=== PATIENT | female | born 1965 | race Caucasian/White ===

== ENCOUNTER 2020-08-24 07:20 | Outpatient (CLI) | payer OTHER, SELFPAY ==
--- NOTE | ~2020-08-24 | MM_ITS ---
EXAMINATION: MM screening gordon BI w shane HISTORY: Screening mammogram TECHNIQUE: Craniocaudal and mediolateral oblique 3-D tomosynthesis images were obtained and synthetic 2-D images were generated. CAD analysis was submitted and interpreted. COMPARISON: No prior mammogram is available for comparison at this institution. BREAST PARENCHYMAL COMPOSITION: There are scattered areas of fibroglandular density. FINDINGS: RIGHT BREAST: There is no evidence of suspicious mass, calcification, or architectural distortion to suggest malignancy. LEFT BREAST: Focal asymmetry is present in the posterior third of the upper outer quadrant of the patrick ast. IMPRESSION: 1. Focal asymmetry of the left breast. 2. Additional mammographic views and possible breast ultrasound are recommended. BI-RADS Category 0: Incomplete: Needs additional imaging evaluation. Reviewed, dictated and finalized at location A. IMPRESSION: 1. Focal asymmetry of the left breast. 2. Additional mammographic views and possible breast ultrasound are recommended . BI-RADS Category 0: Incomplete: Needs additional imaging evaluation.
== END 2020-08-24 07:21 | disposition home or self-care (01) ==
PROVIDERS: PCP Emergency Medicine; Visit Provider Emergency Medicine
DX: Z12.31 Encounter for screening mammogram for malignant neoplasm of breast (principal); R92.8 Other abnormal and inconclusive findings on diagnostic imaging of breast
CPT/HCPCS: 77063; 77067

== ENCOUNTER 2020-10-16 09:21 | Outpatient (CLI) | payer OTHER, SELFPAY ==
--- NOTE | ~2020-10-16 | US_ITS ---
US right upper quadrant DATE: 10/16/2020 14:25 INDICATION: Elevated liver enzymes TECHNIQUE: Real-time imaging of liver, pancreas, gallbladder areas COMPARISON: None FINDINGS: Hepatic steatosis. No hepatic or pancreatic space-occupying mass lesion is evident. Normal hepatopedal portal venous flow direction. No gallstones or gallbladder wall thickening or pericholecystic fluid. Negative sonographic Collins's sign. The common bile duct measures up to 7.7-8.7 mm. Normal range is up to 6 mm. Correlation with serum bi lirubin level is recommended. Consider CT abdomen examination and ERCP or MRCP as clinically appropri ate for further evaluation. IMPRESSION: Dilatation of the common bile duct; consider correlation with serum bilirubin and further imaging evaluation as clinically appropriate Reviewed, dictated and finalized at Location A. Reviewed, dictated and finalized at location A.
--- NOTE | ~2020-10-16 | US_ITS ---
EXAMINATION: US pelvic complete EXAM DATE: 10/16/2020 14:26 INDICATION: Irregular vaginal bleeding. TECHNIQUE: Pelvic transabdominal sonogram was performed. There are multiple grayscale and Doppler im ages available for interpretation. There is no prior study for comparison. FINDINGS: Uterus measures 11.7 x 5.9 x 5.4 cm, and is morphologically normal. Endometrial stripe me asures 12 mm, considered thickened for postmenopausal status. Endometrium does appear homogeneously h yperechoic. There is no free pelvic fluid. Right adnexa: The ovary measures 1.8 x 2.0 x 1.1 cm and is morphologically normal. Ovarian vascular f low confirmed. Left adnexa: The ovary measures 2.2 x 1.8 x 1.8 cm and is morphologically normal. Ovarian vascular fl ow confirmed. IMPRESSION: 1. Mild to moderately thickened endometrium for postmenopausal status, differential diagnosis includ ing endometrial cancer, hyperplasia. Histologic correlation may be indicated. Reviewed, dictated and finalized at location A. IMPRESSION: 1. Mild to moderately thickened endometrium for postmenopausal status, differe ntial diagnosis including endometrial cancer, hyperplasia. Histologic correlati on may be indicated.
== END 2020-10-16 09:22 | disposition home or self-care (01) ==
LOC: ANHIMG 09:31
PROVIDERS: PCP Emergency Medicine; Visit Provider Emergency Medicine
DX: N93.9 Abnormal uterine and vaginal bleeding, unspecified (principal); R93.89 Abnormal findings on diagnostic imaging of other specified body structures; R74.8 Abnormal levels of other serum enzymes
CPT/HCPCS: 76705; 76856

== ENCOUNTER 2021-06-11 16:32 | Emergency (ER) | payer OTHER, SELFPAY ==
--- NOTE | 2021-06-11 16:39 | ED.URI ---
HPI - URI/Sore Throat General Chief Complaint: Dental/Oral Stated Complaint: sore throat/ear pain Time Seen by Provider: 06/11/21 16:40 Source: patient and RN notes reviewed Mode of arrival: ambulatory Limitations: no limitations History of Present Illness HPI Narrative: 56-year-old female presents to the [facility] with complaints of dental pain, ear pain and sinus congestion since Sunday, 3 days. Has taken NyQuil. Patient states that she was scheduled for hysterectomy yesterday and 2 to 3 days prior to that had a negative Covid test to [facility] Related Data Home Medications Medication Instructions Recorded Confirmed levothyroxine 50 mcg PO DAILY 06/11/21 06/11/21 Allergies Allergy/AdvReac Type Severity Reaction Status Date / Time No Known Allergies Allergy Unverified 01/26/17 17:21 Review of Systems Review of Systems: All systems reviewed & are unremarkable except as noted in HPI and below Constitutional: Constitutional: Reports no additional constitutional complaints, Denies chills, Denies fever(s) and Denies headache(s) Eyes: Eyes: Reports no additional eye complaints ENT: Reports as per HPI, Denies vertigo, Denies headache(s), Reports nasal congestion and Reports sore throat Comments: Dental pain Cardiovascular: Cardiovascular: Reports no additional cardiovascular complaints, Denies chest pain, Denies syncope, Denies rapid heart rate and Denies dyspnea Respiratory: Respiratory: Reports no additional respiratory complaints, Denies cough, Denies dyspnea and Denies wheezing Gastrointestinal: Gastrointestinal: Reports no additional gastrointestinal complaints, Denies abdominal pain, Denies diarrhea, Denies nausea and Denies vomiting Musculoskeletal: Musculoskeletal: Reports no additional musculoskeletal complaints and Denies numbness Integumentary/Breasts: Skin/Breast: Reports system reviewed and no additional complaints, except as docu Neurologic: Reports system reviewed and no additional complaints, except as documented, Denies vertigo, Denies dizziness, Denies syncope, Denies headache(s), Denies focal weakness and Denies numbness Psychiatric: Psychiatric: Reports no additional psychiatric complaints Allergic/Immunologic: Allergic/Immunologic: Reports no additional allergic/immunologic complaints and Denies wheezing PMFSH Past Medical History Medical History Thyroid disorder Social History Social History (Updated 06/11/21 @ 19:41 by Cadence A. Topper) Living arrangements: with family Gender identity (if verbalized by the patient): Female Comments At the time of my signature, I reviewed and agree with the nursing past medical, surgical, social, and family history. There is no relevant family history pertinent to the patient complaint. Exam Const: General: healthy appearing, no acute distress and alert Nutritional Appearance: well nourished Orientation/consciousness: patient oriented x3 Limitations: no limitations HENMT: Head: normal to inspection Ears: external ears normal, TM's normal bilaterally and EAC's normal General nose exam: Normal external nose present and Normal nasal mucous membranes and turbinates present Face and sinus: normal facial exam Mouth: Yes Normal oral and palatal mucosa present Teeth and gingiva: poor dentition (Multiple missing teeth posterior molars. multiple decayed teeth teeth) Throat: posterior oropharynx normal, tonsils normal and uvula midline Eyes: Conjunctivae: conjunctivae normal Pupils: Equal, round and reactive pupils present Neck: Neck: normal visual inspection, no lymphadenopathy and no meningeal signs Chest: Chest palpation & inspection: normal inspection of the chest Resp: Effort & Inspection: normal respiratory effort and no use of accessory muscles Auscultation: clear to auscultation bilaterally, no crackles, no rales, no rhonchi and no wheezes Cardio: Rate: regular rate Rhythm: regular rhyt
[2021-06-11 16:40] VITALS: BP 132/81; PULSE 100; RESP 18; TEMP 37.2; O2SAT 98
== END 2021-06-11 17:05 | disposition home or self-care (01) ==
PROVIDERS: Emergency Provider Nurse Practitioner
DX: K04.7 Periapical abscess without sinus (principal); J01.40 Acute pansinusitis, unspecified; E03.9 Hypothyroidism, unspecified
CPT/HCPCS: 99211; G0463

== ENCOUNTER 2022-02-09 10:54 | Outpatient (CLI) | payer OTHER, SELFPAY ==
--- NOTE | ~2022-02-09 | MM_ITS ---
EXAMINATION: MM screening gordon BI w shane HISTORY: Screening mammogram TECHNIQUE: Craniocaudal and mediolateral oblique 3-D tomosynthesis images were obtained and synthetic 2-D images were generated. CAD analysis was submitted and interpreted. COMPARISON: 08/24/2020 bilateral screening mammogram examinations BREAST PARENCHYMAL COMPOSITION: There are scattered areas of fibroglandular density. FINDINGS: There is no evidence of suspicious mass, calcification, or architectural distortion to sugg est malignancy in either breast. There has been no suspicious interval change. IMPRESSION: 1. No mammographic evidence of malignancy. 2. Recommend routine screening mammography in one year. BI-RADS Category 1: Negative Reviewed, dictated and finalized at location A.
== END 2022-02-09 10:55 | disposition home or self-care (01) ==
PROVIDERS: PCP Emergency Medicine; Visit Provider Emergency Medicine
DX: Z12.31 Encounter for screening mammogram for malignant neoplasm of breast (principal)
CPT/HCPCS: 77063; 77067

== ENCOUNTER 2024-01-10 14:58 | Outpatient (CLI) | payer OTHER, SELFPAY ==
--- NOTE | ~2024-01-10 | MM_ITS ---
EXAMINATION: MM screening gordon BI w shane HISTORY: Screening TECHNIQUE: Craniocaudal and mediolateral oblique 3-D tomosynthesis images were obtained and synthetic 2-D images were generated. CAD analysis was submitted and interpreted. COMPARISON: Comparison to multiple prior studies sequentially, with oldest reviewed study dated 08/24. BREAST PARENCHYMAL COMPOSITION: Not dense: There are scattered areas of fibroglandular density. FINDINGS: There is no evidence of suspicious mass, calcification, or architectural distortion to sugg est malignancy in either breast. There has been no suspicious interval change. IMPRESSION: 1. No mammographic evidence of malignancy. 2. Recommend routine screening mammography in one year. BI-RADS Category 1: Negative Reviewed, dictated and finalized at location B.
== END 2024-01-10 14:59 | disposition home or self-care (01) ==
LOC: ANHIMG 14:59
PROVIDERS: PCP Emergency Medicine; Visit Provider Emergency Medicine
DX: Z12.31 Encounter for screening mammogram for malignant neoplasm of breast (principal)
CPT/HCPCS: 77063; 77067

== ENCOUNTER 2024-03-19 09:04 | Outpatient (CLI) | payer OTHER, SELFPAY ==
--- NOTE | ~2024-03-19 | XR_ITS ---
Left Hand Technique: PA, oblique, and lateral views were obtained. Clinical History: Pain Findings: No acute fracture or dislocation is seen. Osseous alignment is anatomic. There are minimal degenerative changes of the interphalangeal joints of the fingers. Soft tissues are unremarkable. Impression: Minimal degenerative changes, as above. Reviewed, dictated and finalized at location . Impression: Minimal degenerative changes, as above.
--- NOTE | ~2024-03-19 | XR_ITS ---
Left wrist Technique: PA, oblique, lateral, and ulnar deviation views were obtained. Clinical History: Pain Findings: No acute fracture or dislocation is seen. Osseous alignment is anatomic. Joint spaces are p reserved. Soft tissues are unremarkable. Impression: Unremarkable left wrist radiographs. Reviewed, dictated and finalized at location . Impression: Unremarkable left wrist radiographs.
[2024-03-19 09:49] LABS: Add Urine Microscopic? YES; Appearance Urine Clear (Clear); Bacteria Urine None Seen /hpf; Bilirubin Urine Negative (Negative); Blood Urine 1+ (Negative); Color Urine Yellow (Yellow); Glucose Urine UA Negative (Negative); Ketones Urine Negative (Negative); Leukocyte Esterase Ur Negative LEU/UL (Negative); Nitrate Urine Negative (Negative); Non Pathogenic Casts 0-2; Protein Urine Negative (Negative); Specific Grav Ur 1.012 (1.001-1.035); Squamous Epithelial Cell Urine Occasional /hpf (Few); Urobilinogen Urine 0.2 mg/dL (<2.0); WBC Urine 0-5 /hpf (0-3); pH Urine 6.5 (5.0-9.0)
[2024-03-19 09:51] LABS: Hematocrit 41.6 % (37.0-47.0); Hemoglobin 13.3 g/dL (12.0-15.0); Mean Corpuscular Hemoglobin 28.5 pg (26-34); Mean Corpuscular Volume 89.3 fl (80-100); Mean Platelet Volume 10.1 fl (7.4-10.4); Platelet Count Result 299 k/mm3 (150-375); Red Blood Count 4.66 M/mm3 (4.2-5.4)
[2024-03-19 10:00] LABS: Alanine Aminotransferase 15 U/L (6-35); Alkaline Phosphatase 106 U/L (38-126); Anion Gap 7 mmol/L (4-12); Aspartate Amino Transferase 22 U/L (14-36); Bilirubin,Total 0.5 mg/dL (0.2-1.3); Blood Urea Nitrogen 10 mg/dL (7-17); Calcium 9.1 mg/dL (8.4-10.2); Carbon Dioxide 29 mmol/L (22-30); Chloride 103 mmol/L (98-107); Cholesterol 168 mg/dL (0-200); Estimated Glomerular Filt Rate > 60; Glucose 108 mg/dL (65-110); HDL Direct 39 mg/dL; Potassium 3.9 mmol/L (3.4-5.0); Sodium 139 mmol/L (137-145); Triglycerides 51 mg/dL (<150)
[2024-03-19 10:11] LABS: LDL Cholesterol Direct 110 mg/dL
[2024-03-19 10:26] LABS: Creatinine Urine 73.1 mg/dL
[2024-03-19 10:36] LABS: MALB Creatinine Ratio < 8.2 mg/g (0-30); Microalbumin Urine Random < 6.0 mg/L (0-16.7)
[2024-03-19 11:02] LABS: Hemoglobin A1C 5.4 % (<5.7)
[2024-03-19 11:19] LABS: Iron 68 ug/dL (37-170)
[2024-03-19 11:31] LABS: Percent Iron Saturation 19 % (20-50)
[2024-03-19 11:36] LABS: Free T4 Free Thyroxine 1.27 ng/mL (0.78-2.19); Vitamin D 25 Hydroxy 19.2 ng/mL
== END 2024-03-19 09:05 | disposition home or self-care (01) ==
PROVIDERS: PCP Emergency Medicine; Visit Provider Emergency Medicine
DX: M54.50 Low back pain, unspecified (principal); R31.9 Hematuria, unspecified; Z00.00 Encounter for general adult medical examination without abnormal findings; E78.5 Hyperlipidemia, unspecified
CPT/HCPCS: 36415; 73110; 73130; 80053; 80061; 81001; 82043; 82306; 83036; 83540; 83550; 84439; 84443; 85027

== ENCOUNTER 2024-11-10 13:36 | Outpatient (CLI) | payer OTHER, SELFPAY ==
[2024-11-10 14:31] LABS: Add Urine Microscopic? YES; Appearance Urine Clear (Clear); Bacteria Urine None Seen /hpf; Bilirubin Urine Negative (Negative); Blood Urine 1+ (Negative); Color Urine Yellow (Yellow); Glucose Urine UA Negative (Negative); Ketones Urine Negative (Negative); Leukocyte Esterase Ur Negative LEU/UL (Negative); Nitrate Urine Negative (Negative); Non Pathogenic Casts 0-2; Protein Urine Negative (Negative); Specific Grav Ur 1.017 (1.001-1.035); Squamous Epithelial Cell Urine None Seen /hpf (Few); WBC Urine 0-5 /hpf (0-3)
--- OUTSIDE RECORDS SUMMARY | 2024-11-10 14:57 | XMS_ITS | Referral Summary ---
Author Organization [facility] Address [address] [place] [address] Care Team Providers Care Wire Photo Operator News Name Role Phone Bhupinder Moore MD Primary Care Provider [phone] Allergies No known active allergies Medications levothyroxine (SYNTHROID) 50 mcg tablet Take 50 mcg by mouth daily 10/04/2020 Active omega-3 fatty acids 1,000 mg capsule Take by mouth Active cholecalciferol (VITAMIN D-3) 2000 unit capsule Take 1,000 Units by mouth daily Active Active Problems Problem Noted Date Diagnosed Date UTI (urinary tract infection) 12/04/2020 Sepsis without acute organ dysfunction Obesity due to excess calories 12/04/2020 Dehydration 12/04/2020 Nausea and vomiting 12/04/2020 Hypothyroidism 12/04/2020 Hypokalemia 12/04/2020 Social History Tobacco Use Types Packs/Day Years Used Date Smoking Tobacco: Never Smokeless Tobacco: Never Comments:people around her s moke AUDIT-C Answer Date Recorded Q1: How often do you have a drink containing alc ohol? Monthly or less 12/05/2020 Q2: How many drinks containi ng alcohol do you have on a typical day when you are drinking? 1 or 2 12/05/2020 Q3: How often do you have si x or more drinks on one occasion? Never 12/05/2020 Personal Safety Answer Date Recorded Have you ever been in or are you currently in a harmful physical or emotional relationship or is someone making you feel afraid or unsafe? Denies 04/26/2024 Comments No Sex and Gender Information Value Date Recorded Sex Assigned at Not on file Legal Sex Female 6:42 PM EVENT MANAGEMENT CONSULTANT Gender Identity Not on file Sexual Orientation Not on file Last Filed Vital Signs Vital Sign Reading Time Taken Comments Blood Pressure 121/74 04/26/2024 10:43 PM EVENT MANAGEMENT CONSULTANT Pulse 58 04/26/2024 10:43 PM EVENT MANAGEMENT CONSULTANT Temperature 36.7 C (98 F) 04/26/2024 7:33 PM EVENT MANAGEMENT CONSULTANT Respiratory Rate 17 04/26/2024 10:43 PM EVENT MANAGEMENT CONSULTANT Oxygen Saturation 100% 04/26/2024 10:43 PM EVENT MANAGEMENT CONSULTANT Inhaled Oxygen Concentration - - Weight 86.3 kg (190 lb 4.1 oz) 04/26/2024 7:33 P M EVENT MANAGEMENT CONSULTANT Height 154.9 cm (5' 1) 03/02/2021 9:39 PM CDT Body Mass Index 35.95 03/02/2021 9:39 PM CDT Plan of Treatment Not on file Procedures Procedure Name Priority Date/Time Associated Diagnosis Comments HEPATITIS PANEL, ACUTE Routine 10/07/2020 11:51 PM CDT from Last 3 Months or Most Recently Relevant to Health Maintenance Results * Hepatitis panel, acute (10/07/2020 11:51 PM CDT) HepBsAg NONREACT NONREACTIVE [facility] Comment: Siemens WatchsendaurXP using CRISTELA (chemiluminescent immunoassay) technology. NONREACTIVE: IgM antibodies to Hepatitis B Surface antigen not detected. REACTIVE: IgM antibodies to Hepatitis B Surface antigen detected. Reactive results will be confirmed by neutralization testing. HBsAb qn <3.10 mIU/mL [facility] Comment: Siemens CentaurXP using CRISTELA (chemiluminescent immunoassay) technology. 9.99 IU/L or less.....NONREACTIVE: IgM antibodies to Hepatitis B Surface antibody are not detected. 10.00 IU/L or greater..REACTIVE: IgM antibodies to Hepatitis B Surface antibody are detected. Hep B core IgM NONREACT NONREACTIVE [facility] Comment: Siemens CentaurXP using CRISTELA (chemiluminescent immunoassay) technology. NONREACTIVE: IgM antibodies to Hepatitis B Core antigen not detected. EQUIVOCAL: IgM antibodies to Hepatitis B Core antigen may or may not be present. Obtain a new specimen and retest. REACTIVE: IgM antibodies to Hepatitis B Core antigen detected. Hep A IgM NONREACT NONREACTIVE [facility] Comment: Siemens CentaurXP using CRISTELA (chemiluminescent immunoassay) technology. NONREACTIVE: IgM antibodies to Hepatitis A not detected. This does not exclude possibility of exposure to Hepatitis A or early acute infection. EQUIVOCAL:IgM antibodies to Hepatitis A may or may not be present. Suggest recollection and retest. REACTIVE: Antibodies to Hepatitis A detected. Hep C Ab NONREACT NONREACTIVE [facility] Comment: Siemens CentaurXP using CRISTELA (chemiluminescent immunoassay) technology. NONREACTIVE: Antibodies to Hepatitis C not detected. This does not exclude early acute Hepatitis C infection, possibility of exposure to Hepatitis C, antibodies below detection limit, or to lack of antibody reactivity to the antigen used in this assay. EQUIVOCAL: Antibodies to Hepatitis C may or may not be present. Sample to be confirmed by real-time PCR method. REACTIVE: Antibodies to Hepatitis C detected.Sample to be confirmed by real-time PCR method. 10/07/2020 11:5 1 PM CDT 10/08/2020 12:06 AM CDT Narrative Resulting Agency Comment ER Latoya Castellanos MD LAB MICROBIOLOGY - GENERA L ORDERABLES Final Result [facility] [address] [place], [place] [id number] [place] [address] from Last 3 Months or Most Recently Relevant to Health Maintenance Insurance [facility] Member Subscriber Plan / Payer (Ef fective 2020-Present) Name:Sally Villegas Relation to Subscriber:Self Name:Sally Villegas Payer ID:[id number] (NAIC) Group ID:Not on file Type:MEDICAID RISK OTHER Address: [address] [place], [place] [id number] [place] [address] [place] [address] Advance Directives For more information, please contact: [phone] * Full Code (Latest Code Status on File) Date Activated Date Inactivated Comments 12/04/2020 10:00 PM 12/07/2020 6:45 PM Care Teams Wire Photo Operator News Relationship Specialty Start Date End Date Bhupinder Moore MD PCP - General 10/05/20
--- OUTSIDE RECORDS SUMMARY | 2024-11-10 14:57 | XMS_ITS | Clinical Summary ---
Author Organization [facility] Address [address] [facility] [place] [address] Care Team Providers Care Strip Mill Operator Name Role Phone Bhupinder Moore MD Primary Care Provider [phone] Bhupinder Moore MD Unavailable Source Comments [facility],non-owned Affiliates and Associated Physician Practices is amultiple site organization consisting of ambulatory clinics and hospital sitesin [place], [place] and [place]. This disclosure is being madepursuant to the Care Everywhere program and may not contain all information available regarding this patient. Last updated 18.[facility] Allergies No known active allergies Medications * Be aware that medications may not be up to date on this document. Alwaysverify current medications with the patient. Cholecalciferol 50 MCG (1999) Take 1,000 Units by mouth once daily Active Brent-3 Fatty Acids (Super Brent-3) 1000 MG Take by mouth. Active Active Problems Problem Noted Date Diagnosed Date Neck pain 06/23/2020 Encounters Date Type Department Care Team Description 10/31/2024 8:30 AM CDT Office Visit [facility] - Neurosurgery [address] [place] [address], [place] [id number] Marty Rascon MD Cervical stenosis of spine (Primary Dx); Cervical radiculopathy; Cervical myelopathy (HCC) 10/31/2024 Travel 10/29/2024 2:35 PM CDT - 10/29/2024 11:59 PM CDT Hospital Encounter [facility] - Outside Imaging Discharge Disposition: Home or Self Care 10/28/2024 11:30 AM CDT Office Visit [facility] - Neurosurgery [address] [place] [phone] Michael Tan MD Cervical radiculopathy (Primary Dx) 10/28/2024 Travel 08/26/2024 9:04 AM CDT - 08/26/2024 11:59 PM CDT Hospital Encounter [facility] OP [address] [place] [address] Alida Hutchison, JEROME-COMMUNITY ADVOCATE Discharge Disposition: Home or Self Care 08/26/2024 8:30 AM CDT Office Visit [facility] - Neurosurgery [address] [place] [phone] Alida Hutchison, LOSS CONTROL TECHNICIAN-COMMUNITY ADVOCATE Michael Tan MD Neck pain (Primary Dx) 08/26/2024 Orders Only [facility] - Neurosurgery [address] [place] [phone] Michael Tan MD Neck pain 08/26/2024 Travel from Last 3 Months Social History Tobacco Use Types Packs/Day Years Used Date Smoking Tobacco: Never Smokeless Tobacco: Never Tobacco Cessation:Counseling Given: No Alcohol Use Standard Drinks/Week Comments Not Currently 0 (1 standard drink = 0.6 oz pur e alcohol) Comments Unknown Sex and Gender Information Value Date Recorded Sex Assigned at Not on file Legal Sex Female 12:05 PM CDT Gender Identity Not on file Sexual Orientation Not on file Last Filed Vital Signs Vital Sign Reading Time Taken Comments Blood Pressure 112/76 10/31/2024 8:03 AM CDT Pulse 65 10/31/2024 8:03 AM CDT Temperature 36.8 C (98.3 F) 10/31/2024 8:03 AM CDT Respiratory Rate 18 10/31/2024 8:03 AM CDT Oxygen Saturation 98% 10/31/2024 8:03 AM CDT Inhaled Oxygen Concentration - - Weight 85.2 kg (187 lb 12.8 oz) 10/31/2024 8:03 AM CDT Height 154.9 cm (5' 1) 10/31/2024 8:03 AM CDT Body Mass Index 35.48 10/31/2024 8:03 AM CDT Plan of Treatment Upcoming Encounters Date Type Department Care Team (Latest Contact Info) Description 12/29/2024 7:05 AM CDT Hospital Encounter [facility] OP [address] [place] [address] Marty Rascon MD [address] [facility] 2L [place] [address] Surgery General 12/29/2024 7:05 AM CDT - 12/29/2024 11:50 AM CDT Surgery [facility] OP [address] [place] [address] Marty Rascon MD [address] [facility] [address] [address] Anterior cervical discectomy and fusion C4-C5,C5-C6,C6-C7 Scheduled Procedures Name Priority Associated Diagnoses Date/Ti me DISCECTOMY WITH FUSION ANTERIOR CERVICAL (ACDF) Cervical stenosis of spine 12/29/2024 7:05 AM CDT Health Maintenance Due Date Last Done Comments COLOGUARD (AGES 45-75) - COL ON CA SCREENING 1964 COLON MONITORING 1964 COLONOSCOPY - COLON CA SCREENING 1964 CT COLONOGRAPHY - COLON CA SCREENING 1964 Colorectal Cancer Screening 1964 FIT - COLON CA SCREENING 1964 FLEX SIG - COLON CA SCREENING 1964 LIPID TESTING 1964 MAMMOGRAM 1964 PAP SMEAR 1964 HIV SCREENING 02/15/1979 HEPATITIS C SCREENING 02/11/1982 DTAP/TDAP/TD VACCINES (1 - Tdap) 02/15/1983 PNEUMOCOCCAL VACCINE 50+ (1 of 1 - PCV) 02/15/2014 ZOSTER VACCINE (1 of 2) 02/15/2014 COVID-19 VACCINE (1 - 2023-2 5 season) 2024 DEPRESSION SCREENING 06/04/2024 SCREENING FOR DIABETES 06/19/2024 INFLUENZA VACCINE (Season Ended) 2025 Respiratory Syncytial Virus (RSV) Vaccine Pt: or over 60 yrs (1 - 1-dose 75+ series) 02/15/2039 HEPATITIS B VACCINE Aged Out No longe r eligible based on patient's age to complete this topic HIB VACCINE Aged Out No longer eligi ble based on patient's age to complete this topic HPV VACCINE Aged Out No longer eligi ble based on patient's age to complete this topic MENINGOCOCCAL (Group B) VACC INE SHARED DECISION-MAKING Aged Out No longer eligibl e based on patient's age to complete this topic MENINGOCOCCAL GROUPS A/C/Y/W VACCINE Aged Out No longer eligible b ased on patient's age to complete this topic Procedures Procedure Name Priority Date/Time Associated Diagnosis Comments XR CERVICAL SPINE 4 OR 5VW Routine 08/26/2024 9:10 AM CDT Neck pain from Last 3 Months Results * XR Cervical Spine 4 or 5Vw (08/26/2024 9:10 AM CDT) Anatomical Region Laterality Modality Spine Digital Radiogra phy 08/27/2024 7:42 AM CDT Impressions 08/27/2024 8:53 AM CDT IMPRESSION: No acute fracture or subluxation of cervical spine is identified. > Dictated by Jason RIOS, FRCR (radiology rn). I, Hernandez Pitts MD have personally reviewed and interpreted this examination/study. > Interpreting Provider: Hernandez Pitts MD on 08/27/2024 8:53 AM Narrative 08/27/2024 8:53 AM CDT EXAMINATION: XR CERVICAL SPINE 4 OR 5VW 08/26/2024 9:10 AM HISTORY: M54.2: Neck pain COMPARISON: No prior study is available for comparison. FINDINGS: There is straightening of the normal lordotic curvature of cervical spine. No acute fracture or compression deformity is identified. Multilevel mild degenerative joint/disc diseases are noted. The predental interval and prevertebral soft tissues are normal. Bone density is normal. Procedure Note Hernandez Pitts MD - 08/27/2024 EXAMINATION: XR CERVICAL SPINE 4 OR 5VW 08/26/2024 9:10 AM HISTORY: M54.2: Neck pain COMPARISON: No prior study is available for comparison. FINDINGS: There is straightening of the normal lordotic curvature of cervicalspine. No acute fracture or compression deformity is identified. Multilevelmild degenerative joint/disc diseases are noted. The predental interval and prevertebral soft tissues are normal. Bone density is normal. IMPRESSION: No acute fracture or subluxation of cervical spine is identified. > Dictated by [facility] (radiology rn). I, Hernandez Pitts MD have personally reviewed and interpreted this examination/study. > Interpreting Provider: Hernandez Pitts MD on 08/27/2024 8:53 AM Alida Hutchison LOSS CONTROL TECHNICIAN-COMMUNITY ADVOCATE DIAGNOSTIC IMAGING O RDERABLES Final Result from Last 3 Months Insurance Care Teams Strip Mill Operator Relationship Specialty Start Date End Date Bhupinder Moore MD [address] [place] [phone] PCP - General Family Medicine 05/19/24 Bhupinder Moore MD [address] [place] [phone] 05/19/24
--- OUTSIDE RECORDS SUMMARY | 2024-11-10 14:57 | XMS_ITS | Clinical Summary ---
Author Organization [facility] [place] Judy reyes [facility] Address [address] [place] [address] Care Team Providers Care Assistant Finance Director Name Role Phone Bhupinder Moore MD Primary Care Provider [phone] Allergies No known active allergies Medications levothyroxine 50 mcg tablet Take 50 mcg by mouth daily. 10/04/2020 Active docosahexaenoic acid/epa (FISH OIL ORAL) Take by mouth daily. Active Duke-3 Fatty Acids 1,000 mg Capsule Take by mouth. Active Cholecalciferol, Vitamin D3, 50 mcg (2,000 unit) Capsule Take 1,000 Units by mouth daily. 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 Family History Medical History Relation Name Comments Heart Disease Brother 1 Cancer Brother 2 Cancer Father Cancer Sister 1 Cancer Sister 2 Relation Name Status Comments Brother 1 Alive Brother 2 Alive Father Mother Sister 1 Alive Sister 2 Alive Social History Tobacco Use Types Packs/Day Years Used Date Smoking Tobacco: Never Smokeless Tobacco: Never Alcohol Use Standard Drinks/Week Comments Never 0 (1 standard drink = 0.6 oz pur e alcohol) Comments No Sex and Gender Information Value Date Recorded Sex Assigned at Not on file Legal Sex Female 10:30 AM CDT Gender Identity Not on file Sexual Orientation Not on file Last Filed Vital Signs Vital Sign Reading Time Taken Comments Blood Pressure 126/74 03/27/2022 10:13 AM CDT Pulse 69 03/27/2022 10:13 AM CDT Temperature 36.8 C (98.2 F) 03/27/2022 10:13 AM CDT Respiratory Rate 16 03/01/2022 9:26 AM CDT Oxygen Saturation 98% 03/27/2022 10:13 AM CDT Inhaled Oxygen Concentration - - Weight 84.5 kg (186 lb 6 oz) 03/27/2022 10:13 AM CDT Height 152.4 cm (5') 03/27/2022 10:13 AM CDT Body Mass Index 36.4 03/27/2022 10:13 AM CDT Plan of Treatment Health Maintenance Due Date Last Done Comments DTAP/TDAP/TD VACCINES (1 - Tdap) 02/15/1983 BREAST CANCER SCREENING 2004 COLORECTAL SCREENING 02/15/2009 Colorectal Cancer Screening 02/15/2009 FIT-DNA Q 3 years 02/15/2009 FIT/FOBT Q 1 year 02/15/2009 Flex Sig/CT Colonography Q 5 years 02/15/2009 ZOSTER VACCINE (1 of 2) 02/15/2014 INFLUENZA VACCINE (#1) 2024 RSV VACCINE (60+ or ) (1 - 1-dose 75+ series) 02/15/2039 HEPATITIS B VACCINES Aged Out No long er eligible based on patient's age to complete this topic Insurance MEDICAID [facility]ICAID [facility] [id number] [facility] [employer] [facility] [employer] Commercial RX [employer] PLANS (INTERNAL) [facility] Advance Directives For more information, please contact: [phone] * Full Code (Latest Code Status on File) Date Activated Date Inactivated Comments 02/28/2022 4:19 PM 03/01/2022 1:00 PM Care Teams Assistant Finance Director Relationship Specialty Start Date End Date Bhupinder Moore MD [address] [place] [id number] PCP - General Emergency Medicine 08/27/19
--- OUTSIDE RECORDS SUMMARY | 2024-11-10 14:57 | XMS_ITS | Clinical Summary ---
Author Organization [facility] Address [address] [place] [address] Care Team Providers Care Hearing Screener Name Role Phone Bhupinder Moore MD Primary Care Provider [phone] Allergies No known active allergies Medications levothyroxine [...] and vomiting 12/04/2020 Hypothyroidism 12/04/2020 Hypokalemia 12/04/2020 Surgical History Surgery Date Site/Laterality Comments TUBAL LIGATION LITHOTRIPSY Medical History Medical History Date Comments Hypothyroidism Kidney stones UTI (urinary tract infection) Arthritis Cancer (HCC) seeing oncologis t getting blood work done, needs to follow up. 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 Gender Identity Not on file Sexual Orientation Not on file Obstetrics History Last Filed Vital Signs Vital Sign Reading Time Taken Comments Blood Pressure 121/74 04/26/2024 10:43 PM HOSE OPERATOR Pulse 58 04/26/2024 10:43 PM HOSE OPERATOR Temperature 36.7 C (98 F) 04/26/2024 7:33 PM HOSE OPERATOR Respiratory Rate 17 04/26/2024 10:43 PM HOSE OPERATOR Oxygen Saturation 100% 04/26/2024 10:43 PM HOSE OPERATOR Inhaled Oxygen Concentration - - Weight 86.3 kg (190 lb 4.1 oz) 04/26/2024 7:33 P M HOSE OPERATOR Height 154.9 cm (5' 1) 03/02/2021 9:39 PM CDT Body Mass Index 35.95 03/02/2021 9:39 PM CDT Plan of Treatment Health Maintenance Due Date Last Done Comments Breast Cancer Screening-Mammogram 1964 Cervical Cancer Screening 1964 Colon Cancer Screening-Colonoscopy 1964 Depression Screening 1964 DTaP/Tdap/Td Vaccine (1 - Tdap) 02/15/1975 Hepatitis B Screening 02/15/1982 Regular Well Visit/Exam 18-64 02/15/1982 Zoster Vaccine (1 of 2) 02/15/2014 Influenza Vaccine (Season Ended) 2025 Hepatitis C Screening Completed 10/07/2020 Pneumococcal vaccine <65 Aged Out No longer eligible based on patient's age to complete this topic Procedures Procedure Name Priority Date/Time Associated Diagnosis Comments HEPATITIS PANEL, ACUTE Routine 10/07/2020 11:51 PM CDT from Last 3 Months or Most Recently Relevant to Health Maintenance Results * Hepatitis panel, acute (10/07/2020 11:51 PM CDT) HepBsAg NONREACT NONREACTIVE [facility] Comment: Siemens CentaurXP using CRISTELA (chemiluminescent immunoassay) technology. NONREACTIVE: IgM antibodies to Hepatitis B Surface antigen not detected. REACTIVE: IgM antibodies to Hepatitis B Surface antigen detected. Reactive results will be confirmed by neutralization testing. HBsAb qn <3.10 mIU/mL [facility] Comment: Siemens CentaurXP using CRISTELA (chemiluminescent immunoassay) technology. 9.99 IU/L or less.....NONREACTIVE: IgM antibodies to Hepatitis B Surface antibody are not detected. 10.00 IU/L or greater..REACTIVE: IgM antibodies to Hepatitis B Surface antibody are detected. Hep B core IgM NONREACT NONREACTIVE [facility] Comment: Siemens CentaurXP using CRISTELA (chemiluminescent immunoassay) technology. NONREACTIVE: IgM antibodies to Hepatitis B Core antigen not detected. EQUIVOCAL: IgM antibodies to Hepatitis B Core antigen may or may not be present. Obtain a new specimen and retest. REACTIVE: IgM antibodies to Hepatitis B Core antigen detected. Hep A IgM NONREACT NONREACTIVE [facility] Comment: Siemens CentaurXP using CRISTELA (chemiluminescent immunoassay) technology. NONREACTIVE: IgM antibodies to Hepatitis A not detected. This does not exclude possibility of exposure to Hepatitis A or early acute infection. EQUIVOCAL:IgM antibodies to Hepatitis A may or may not be present. Suggest recollection and retest. REACTIVE: Antibodies to Hepatitis A detected. Hep C Ab NONREACT NONREACTIVE [facility] Comment: Siemens CentaurXP using CRISTELA (chemiluminescent immunoassay) [...] MICROBIOLOGY - GENERA L ORDERABLES Final Result [facility] [address] [phone] from Last 3 Months or Most Recently Relevant to Health Maintenance Insurance [facility] Member Subscriber Plan / Payer (Ef fective 2023-Present) Name:Nelly Sally E Relation to Subscriber:Self Name:Cynthia Villegasjesse Ellison Payer ID:Not on file Group ID:Not on file Type:OTHER Address: [facility] [place] [id number] [facility] Advance Directives For more information, please contact: [phone] * Full Code (Latest Code Status on File) Date Activated Date Inactivated Comments 12/04/2020 10:00 PM 12/07/2020 6:45 PM Care Teams Hearing Screener Relationship Specialty Start Date End Date Bhupinder Moore MD PCP - General 10/05/20
[2024-11-10 16:02] LABS: Iron 47 ug/dL (37-170)
[2024-11-10 16:11] LABS: Percent Iron Saturation 13 % (20-50)
[2024-11-10 16:19] LABS: Free T4 Free Thyroxine 1.19 ng/dL (0.78-2.19)
[2024-11-10 16:34] LABS: Vitamin D 25 Hydroxy 12.8 ng/mL
== END 2024-11-10 13:37 | disposition home or self-care (01) ==
LOC: ANHLAB 13:45
PROVIDERS: PCP Emergency Medicine; Visit Provider Emergency Medicine
DX: Z00.00 Encounter for general adult medical examination without abnormal findings (principal); E55.9 Vitamin D deficiency, unspecified; E78.5 Hyperlipidemia, unspecified; R31.9 Hematuria, unspecified; M50.30 Other cervical disc degeneration, unspecified cervical region
CPT/HCPCS: 36415; 81001; 82306; 83540; 83550; 84439; 84443